=== PATIENT | female | born 1965 | race Caucasian/White ===

== ENCOUNTER → 2017-09-20 | Outpatient (CLI) | payer BC ==
--- NOTE | 2017-09-20 13:32 | Diagnostic Imaging Report ---
PROCEDURE:HIP RIGHT 2-3 VW (+/- PELVIS) COMPARISON:None. INDICATIONS:RIGHT HIP PAIN FINDINGS: Normal mineralization. No acute fracture or dislocation. Joint spaces are within normal limits. Soft tissues are unremarkable. CONCLUSION: No acute radiographic abnormality. Dictated by: Ari Oh M.D. on 09/20/2017 at 13:33 Electronically approved by: Ari Oh M.D. on 09/20/2017 at 13:33
== END ==
LOC: RAD 09:08
PROVIDERS: ATTEND Family Medicine
DX: M25.551 Pain in right hip (principal)